=== PATIENT | female | born 1990 | race Caucasian/White ===

== ENCOUNTER 2019-05-12 12:44 | Emergency (ER) | payer MEDICAID | END 2019-05-12 14:34 | disposition home or self-care (01) | LOC: FTE 12:44 | DX: O26.892 Other specified pregnancy related conditions, second trimester (principal); R10.2 Pelvic and perineal pain; Z3A.15 15 weeks gestation of pregnancy | CPT/HCPCS: 76805; 76817; 99284-25 ==